=== PATIENT | male | born 1985 | race Hispanic/Latino ===

== ENCOUNTER 2020-08-03 11:44 | Emergency (ER) | payer SELFPAY ==
[2020-08-03] MEDS ORDERED: Albuterol 200 PUFF (6.7GM INHALER) ONE (13:02)
[2020-08-03] MEDS ORDERED: Acetaminophen 325 MG TAB ONE (13:03)
[2020-08-03] MEDS ORDERED: Ondansetron PF 4 MG/2 ML Vial ONE (13:03)
[2020-08-03] MEDS ORDERED: Dexamethasone 10 MG/ML VIAL ONE (13:03)
--- NOTE | 2020-08-03 13:14 | RAD ---
RADIOGRAPH CHEST 1 VIEW: DATE: 08/03/2020 TIME: 1:02 PM HISTORY: 34-year-old COVID-19 positive male with dyspnea COMPARISON: none FINDINGS: Shallow inspiration. Extensive bilateral alveolar infiltrates throughout both lungs. Relative sparing of apices. No cardio megaly or pneumothorax. IMPRESSION: Somewhat severe bilateral COVID-19 pneumonia
[2020-08-03 14:12] LABS: #Lymphocytes 0.8 thou/uL (1.20-3.40); #Monocytes 0.1 thou/uL (0.11-0.59); #Neutrophils 6.6 thou/uL (1.40-6.50); %Basophils 0.1 % (0.0-1.0); %Lymphocytes 10.4 % (21.0-51.0); %Monocytes 1.9 % (0.0-10.0); %Neutrophils 87.6 % (42.0-75.0); Hemoglobin 13.6 g/dL (14.0-18.0); Mean Corpuscular HGB CONC 34.5 g/dL (32.0-36.0); Mean Corpuscular Hemoglobin 30.7 pg (27.0-31.0); Mean Platelet Volume 6.8 fL (7.4-10.4); Platelet Count 254 thou/uL (130-400); RBC Distribution Width 10.7 % (11.5-14.5); Red Blood Cell (RBC) Count 4.41 mill/uL (4.70-6.10); White Blood Cell (WBC) Count 7.5 thou/uL (4.8-10.8)
[2020-08-03 14:31] LABS: ALT (SGPT) 24 U/L (8-55); AST (SGOT) 34 U/L (5-34); Alkaline Phosphatase 57 U/L (40-110); Anion Gap 17 mmol/L (10-20); BUN (Urea Nitrogen) 8 mg/dL (8.9-20.6); Bilirubin, Total 0.3 mg/dL (0.2-1.2); Calc. Creatinine Clearance 0 mL/min (70-130); Calcium 8.4 mg/dL (7.8-10.44); Carbon Dioxide 24 mmol/L (22-29); Chloride 96 mmol/L (98-107); Globulin 4.1 g/dL (2.4-3.5); Glucose 94 mg/dL (70-105); Potassium 3.6 mmol/L (3.5-5.1); Protein, Total 8.1 g/dL (6.0-8.3); Sodium 133 mmol/L (136-145)
--- NOTE | 2020-08-03 15:38 | CT ---
CT arteriogram chest with IV contrast and 3-D imaging HISTORY: Dyspnea. Chest pain. FINDINGS: There is good contrast opacification pulmonary arteries and thoracic aorta with normal bran juana of the great vessels at the aortic arch. Throughout each lung, there are prominent predominantly peripheral groundglass and interstitial infil trates. No lobar consolidation. No pleural fluid or pneumothorax. IMPRESSION : No evidence of pulmonary embolus. Prominent bilateral infiltrates with the appearance of COVID pneumonitis.
== END 2020-08-03 17:26 | disposition home or self-care (01) ==
LOC: ERS 11:44
DX: U07.1 COVID-19 (principal)
CPT/HCPCS: 71045; 71275; 80053; 85025; 85379; 94760; 96374; 96375; J1100; J2405